=== PATIENT | male | born 1990 | race Hispanic/Latino ===

== ENCOUNTER → 2024-07-07 | Day surgery (SDC) | payer BC ==
[~2024-07-07] MED LIST: ATIVAN1 MG PO; DEXMEDETOMIDINE HCL 200 MCG/2 ML VIAL ONE; FENTANYL CITRATE/PF 100MCG/2 ML INJ ONE; FERROUS SULFAT325 MG PO; LIDOCAINE HCL 2% LOCAL INJ 5 ML SDV VIAL INJ ONE; MIDAZOLAM HCL 2 MG/2 ML VIAL ONE; PROPOFOL IV EMULSION 10 MG/ML 50 ML VIAL IV ONE; VITAMIN C500 MG PO; VYVANSE70 MG PO
[2024-07-07] MEDS: LACTATED RINGER'S 1,000 ML ONE (15:20)
[2024-07-07 17:15] VITALS: BP 112/86; PULSE 76; RESP 16; TEMP 97.4; O2SAT 98
== END | disposition home or self-care (01) ==
LOC: ENDO 14:40
PROVIDERS: ATTEND Internal Medicine Gastroenterology
DX: K20.90 Esophagitis, unspecified without bleeding (principal); K29.50 Unspecified chronic gastritis without bleeding; B96.81 Helicobacter pylori [H. pylori] as the cause of diseases classified elsewhere; R09.A2 Foreign body sensation, throat; Z71.3 Dietary counseling and surveillance; D64.9 Anemia, unspecified; Z71.89 Other specified counseling; F90.9 Attention-deficit hyperactivity disorder, unspecified type; F41.9 Anxiety disorder, unspecified; F17.290 Nicotine dependence, other tobacco product, uncomplicated; Z71.6 Tobacco abuse counseling; Z79.899 Other long term (current) drug therapy; Z68.30 Body mass index [BMI] 30.0-30.9, adult
CPT/HCPCS: 43239; 43450; J2001; J2250; J2470; J2704; J3010; J7121